=== PATIENT | female | born 1990 | race Caucasian/White ===

== ENCOUNTER 2020-08-03 23:36 | Inpatient (IN) | payer OTHER ==
[~2020-08-03] VITALS: Ht 162.6 cm; Wt 122.0 kg
[~2020-08-03 23:36] MED LIST: MACROBID100 MG PO
[2020-08-04 00:15] LABS: BILIRUBIN NEGATIVE (NEGATIVE); BLOOD TRACE-INTACT Ery/uL (NEGATIVE); CLARITY CLEAR (CLEAR); COLOR YELLOW (YELLOW); GLUCOSE (U) NORMAL (NORMAL); LEUKOCYTES 3+ Leu/uL (NEGATIVE); NITRITE NEGATIVE (NEGATIVE); PROTEIN NEGATIVE (NEGATIVE); UROBILINOGEN 0.2 mg/dL (0.2-1.0); pH 6.5 (5.0-9.0)
[2020-08-04 00:26] LABS: URINARY WBC 20-50
[2020-08-04 00:27] LABS: BACTERIA 1+
[2020-08-04 02:04] LABS: HCT 31.4 % (37.0-47.0); HGB 10.2 g/dl (12.5-16.0); MCH 29.3 pg (25.0-31.0); MCHC 32.5 g/dL (32.0-36.0); MCV 90.2 fL (78.0-100.0); MPV 9.4 fL (6.0-9.5); RBC 3.48 M/uL (4.20-5.40); RDW 14.9 % (11.5-14.0); WBC 7.9 K/uL (4.0-10.5)
[2020-08-04 02:14] LABS: ALBUMIN 2.5 g/dL (3.4-5.0); BILIRUBIN - TOTAL 0.3 mg/dL (0.2-1.0); BUN/CREAT RATIO (CALC) 11.1 RATIO; CREATININE 0.54 mg/dL (0.51-0.95); GLOBULIN (CALCULATION) 4.4 g/dL; POTASSIUM 3.4 mmol/L (3.5-5.1); TOTAL PROTEIN 6.9 g/dL (6.4-8.2); URIC ACID 2.6 mg/dL (2.6-6.2)
[2020-08-04 02:18] LABS: PROTEIN:CREATININE 0.14 RATIO; URINE CREATININE 68.23 mg/dL (29.00-226.00)
[2020-08-04 02:51] LABS: AMPHETAMINES NEGATIVE (NEGATIVE); BARBITURATES NEGATIVE (NEGATIVE); ECSTASY (MDMA) NEGATIVE (NEGATIVE); MARIJUANA (THC) NEGATIVE (NEGATIVE); METHADONE NEGATIVE (NEGATIVE); OPIATES NEGATIVE (NEGATIVE); OXYCODONE NEGATIVE (NEGATIVE)
[2020-08-05 12:32] LABS: HCT 28.1 % (37.0-47.0); HGB 9.4 g/dl (12.5-16.0); MCHC 33.5 g/dL (32.0-36.0); MCV 89.8 fL (78.0-100.0); MPV 9.2 fL (6.0-9.5); RBC 3.13 M/uL (4.20-5.40); RDW 15.1 % (11.5-14.0); WBC 12.1 K/uL (4.0-10.5)
== END 2020-08-06 20:00 | disposition home or self-care (01) | DRG 806 ==
LOC: FOB 23:36 → FOD 23:36 → FOB 08-04 02:35
PROVIDERS: Obstetrics & Gynecology; ADMIT Obstetrics & Gynecology
PROC: 10E0XZZ Delivery of Products of Conception, External Approach (ICD-10-PCS; principal; 2020-08-05)
PROC: 3E0DXGC Introduction of Other Therapeutic Substance into Mouth and Pharynx, External Approach (ICD-10-PCS; 2020-08-05)
PROC: 10907ZC Drainage of Amniotic Fluid, Therapeutic from Products of Conception, Via Natural or Artificial Opening (ICD-10-PCS; 2020-08-05)
PROC: 3E033VJ Introduction of Other Hormone into Peripheral Vein, Percutaneous Approach (ICD-10-PCS; 2020-08-05)
PROC: 3E0234Z Introduction of Serum, Toxoid and Vaccine into Muscle, Percutaneous Approach (ICD-10-PCS; 2020-08-06)
DX: O13.4 Gestational [pregnancy-induced] hypertension without significant proteinuria, complicating childbirth (principal); D62 Acute posthemorrhagic anemia; Z37.0 Single live birth; O99.214 Obesity complicating childbirth; E66.9 Obesity, unspecified; O16.4 Unspecified maternal hypertension, complicating childbirth; O62.2 Other uterine inertia; Z20.822 Contact with and (suspected) exposure to COVID-19; Z3A.38 38 weeks gestation of pregnancy; O72.3 Postpartum coagulation defects; D69.6 Thrombocytopenia, unspecified; O99.03 Anemia complicating the puerperium; O26.893 Other specified pregnancy related conditions, third trimester; Z67.10 Type A blood, Rh positive
CPT/HCPCS: 36415; 80053; 80305; 81001; 82570; 83615; 84156; 84550; 86850; 86900; 86901; J1200; J2300; J2790; J2916; J7120; U0002

== ENCOUNTER 2020-11-04 00:16 | Emergency (ER) | payer OTHER | END 2020-11-04 05:15 | disposition home or self-care (01) | LOC: FER 00:16 | DX: U07.1 COVID-19 (principal) | CPT/HCPCS: 99283; U0002 ==